=== PATIENT | female | born 1945 | race Caucasian/White ===

== ENCOUNTER → 2016-10-23 | Outpatient (CLI) | payer OTHER, MEDICARE ==
[~2016-10-23] MED LIST: ESTRACE1 MG PO; EXCEDRIN EXTRA STREN PO; LISINOPRIL10 MG PO; METHOCARBAMOL500 MG PO
--- NOTE | 2016-10-23 10:15 | DIAGNOSTIC IMAGING REPORT ---
PROCEDURE: US ABDOMEN ULTRASOUND-COMPLETE INDICATION: BLOATING;RUQ PAIN TECHNIQUE: German scale and color Doppler sonographic images of the abdomen were obtained. COMPARISON: CT abdomen/pelvis 01/19/2013 FINDINGS: Liver measures 14.5 cm with normal echogenicity. Normal pancreas, spleen and gallbladder. CBD measures 5.1 mm. Aorta and IVC are patent. Normal hepatopetal flow. Bilateral renal cortical atrophy. Right kidney measures 8.7 cm and left kidney 10.8 cm. IMPRESSION: 1. Mild bilateral renal cortical atrophy
== END ==
LOC: US SRH 08:54
DX: R10.11 Right upper quadrant pain (principal); R14.0 Abdominal distension (gaseous)